=== PATIENT | female | born 1995 | race African-American/Black ===

== ENCOUNTER 2017-09-21 23:50 | Emergency (ER) | payer MEDICAID, OTHER ==
[~2017-09-21] VITALS: Ht 157.5 cm; Wt 64.0 kg
[2017-09-21 23:52] VITALS: BP 124/58; PULSE 90; RESP 18; TEMP 97.8; O2SAT 100
[2017-09-22] MEDS ORDERED: SODIUM CHLOR 0.9% 1000 ML INJ 1,000 ML IV SCH (00:03)
--- NOTE | 2017-09-22 00:06 | PD ---
HPI Chief Complaint: Abdominal Pain Time Seen by Provider: 00:00 Travel History International Travel<30 days: No Contact w/Intl Traveler<30days: No Traveled to known affect area: No History of Present Illness HPI 22-year-old female here for evaluation of nausea, vomiting, and . The patient reports that she had a positive home test. Her LMP was August 12. She reports that this is her first . For the last 2 days she has been having persistent vomiting which initially was bilious, now consists of whatever she tries to eat or drink. She also reports some loose bowel movements as well as abdominal cramping which is mid/diffuse, moderate. No vaginal bleeding or discharge. No fevers or chills. No urinary symptoms. No history of abdominal surgeries. [facility] Past Medical History Medical History: Denies Significant Hx Developmental Delay: No Diminished Hearing: No Immunizations Current: Yes ?: LMP: 08/12/17 Past Surgical History Surgical History: No Previous Surgery Social History Alcohol Use: No Tobacco Use: No Substance Use: No Allergies-Medications (Allergen,Severity, Reaction): Coded Allergies: No Known Allergies (Verified , 04/25/12) Reported Meds & Prescriptions Reported Meds & Active Scripts Active No Active Prescriptions or Reported Medications Review of Systems Except as stated in HPI: all other systems reviewed are Neg Physical Exam Narrative GENERAL: Well-developed, well-nourished, comfortable, no apparent distress. SKIN: Focused skin assessment warm/dry. HEAD: Atraumatic. Normocephalic. EYES: Pupils equal and round. No scleral icterus. No injection or drainage. ENT: No nasal bleeding or discharge. Mucous membranes pink and moist. NECK: Trachea midline. No JVD. CARDIOVASCULAR: Regular rate and rhythm. No murmur appreciated. RESPIRATORY: No accessory muscle use. Clear to auscultation. Breath sounds equal bilaterally. GASTROINTESTINAL: Abdomen soft, non-tender, nondistended. Normal bowel sounds. MUSCULOSKELETAL: No obvious deformities. No clubbing. No cyanosis. No edema. NEUROLOGICAL: Awake and alert. No obvious cranial nerve deficits. Motor grossly within normal limits. Normal speech. PSYCHIATRIC: Appropriate mood and affect; insight and judgment normal. Data Data Last Documented VS Vital Signs Date Time Temp Pulse Resp B/P (MAP) Pulse Ox O2 Delivery O2 Flow Rate FiO2 09/21/17 23:52 97.8 90 18 124/58 (80) 100 Room Air Orders Orders Beta Hcg (Quant/Titer) (09/22/17 00:03) Complete Blood Count With Diff (09/22/17 00:03) Comprehensive Metabolic Panel (09/22/17 00:03) Urinalysis - C+S If Indicated (09/22/17 00:03) Iv Access Insert/Monitor (09/22/17 00:03) Ecg Monitoring (09/22/17 00:03) Oximetry (09/22/17 00:03) Ondansetron Inj (Zofran Inj) (09/22/17 00:15) Sodium Chlor 0.9% 1000 Ml Inj (Ns 1000 M (09/22/17 00:03) Sodium Chloride 0.9% Flush (Ns Flush) (09/22/17 00:15) Ed Urine Pregnancytest Poc (09/22/17 00:03) Us Pelvis (Ques Preg/Ectopic) (09/22/17 ) Labs Laboratory Tests Test 09/22/17 00:15 09/22/17 02:10 White Blood Count 10.8 TH/MM3 Red Blood Count 4.54 MIL/MM3 Hemoglobin 13.2 GM/DL Hematocrit 38.3 % Mean Corpuscular Volume 84.4 FL Mean Corpuscular Hemoglobin 29.0 PG Mean Corpuscular Hemoglobin Concent 34.4 % Red Cell Distribution Width 12.8 % Platelet Count 252 TH/MM3 Mean Platelet Volume 8.9 FL Neutrophils (%) (Auto) 77.3 % Lymphocytes (%) (Auto) 13.5 % Monocytes (%) (Auto) 8.4 % Eosinophils (%) (Auto) 0.5 % Basophils (%) (Auto) 0.3 % Neutrophils # (Auto) 8.3 TH/MM3 Lymphocytes # (Auto) 1.5 TH/MM3 Monocytes # (Auto) 0.9 TH/MM3 Eosinophils # (Auto) 0.1 TH/MM3 Basophils # (Auto) 0.0 TH/MM3 CBC Comment DIFF FINAL Differential Comment Blood Urea Nitrogen 6 MG/DL Creatinine 0.65 MG/DL Random Glucose 80 MG/DL Total Protein 7.9 GM/DL Albumin 3.9 GM/DL Calcium Level 9.2 MG/DL Alkaline Phosphatase 85 U/L Aspartate Amino Transf (AST/SGOT) 17 U/L Alanine Aminotransferase (ALT/SGPT) 19 U/L Total Bilirubin 0.4 MG/DL Sodium Level 136 MEQ/L Potassium Level 3.7 MEQ/L Chloride Level 103 MEQ/L Carbon Dioxide Level 24.2 MEQ/L Anion Gap 9 MEQ/L Estimat Glomerular Filtration Rate 141 ML/MIN Human Chorionic Gonadotropin, Quant 99582 MIU/ML Urine Color YELLOW Urine Turbidity HAZY Urine pH 6.0 Urine Specific [place] 1.024 Urine Protein TRACE mg/dL Urine Glucose (UA) NEG mg/dL Urine Ketones 150 mg/dL Urine Occult Blood NEG Urine Nitrite NEG Urine Bilirubin NEG Urine Urobilinogen LESS THAN 2.0 MG/DL Urine Leukocyte Esterase SMALL Urine RBC 1 /hpf Urine WBC 2 /hpf Urine Squamous Epithelial Cells 8 /hpf Urine Bacteria OCC /hpf Urine Hyaline Casts 1 /lpf Urine Mucus MANY /lpf Microscopic Urinalysis Comment CULT NOT INDICATED MDM Medical Decision Making Medical Screen Exam Complete: Yes Emergency Medical Condition: Yes Differential Diagnosis Hyperemesis gravidarum, , ectopic , metabolic abnormality, UTI , acute intra-abdominal/surgical process unlikely Narrative Course Initial vital signs show heart rate 90, blood pressure 124/58, pulse ox 100% on room air, oral temp of 97.8F. CBC: WBC 10.8, hemoglobin 13.2, hematocrit 38.3, platelets 252, neutrophils 77.3 %. CMP is unremarkable. Beta hCG is 79,759. UA: Shows occasional bacteria Pelvic ultrasound: CONCLUSION: 1. There is a single intrauterine gestation with estimated age of 7 weeks and one day. Normal heart rate is documented. 2. There is a crescentic area of hypoechogenicity adjacent to the gestational sac which could represent a small subchorionic hemorrhage. Patient was made aware of all findings per she was given a dose of Zofran and is feeling much better. There are no peritoneal signs on exam. Pelvic rest endorsed. She is stable for discharge home with follow-up with an CERTIFIED FLEX ENDOSCOPE REPROCESSOR physician this week. I will start her on Macrobid for her bacteriuria during . She was informed on when to return to the emergency department. She verbalizes understanding and agreement with plan. Diagnosis Primary Impression: Qualified Codes: Z3A.01 - Less than 8 weeks gestation of Additional Impressions: Nausea and vomiting during Bacteriuria during Referrals: [facility] 3 days Additional Instructions: Follow-up with an CERTIFIED FLEX ENDOSCOPE REPROCESSOR physician this week. Return to the emergency department for worsening symptoms or any other concerns. Scripts Nitrofurantoin Monohydrate Macrocrystals (Macrobid) 100 Mg Cap 100 MG PO BID for Infection for 7 Days, #14 CAP 0 Refills Prov: Milton Elizabeth MD 09/22/17 Disposition: 01 DISCHARGE HOME Condition: Stable Milton Elizabeth MD Sep 22, 2017 00:06
[2017-09-22] MEDS ORDERED: ONDANSETRON HCL 4 MG/2 ML VIAL IVP ONE (00:15)
[2017-09-22] MEDS ORDERED: SODIUM CHLORIDE 0.9% FLUSH 10 ML FLUSH IV FLUSH PRN (00:15)
[2017-09-22 00:42] LABS: AUTOMATED NEUTROPHIL # 8.3 TH/MM3 (1.8-7.7); BASOPHIL % 0.3 % (0.0-2.0); EOSINOPHIL # 0.1 TH/MM3 (0-0.4); EOSINOPHIL % 0.5 % (0.0-4.0); HEMATOCRIT 38.3 % (35.0-46.0); HEMO FLAGS DIFF FINAL; LYMPH % 13.5 % (9.0-44.0); LYMPHOCYTE # 1.5 TH/MM3 (1.0-4.8); MEAN CELL VOLUME 84.4 FL (80.0-100.0); MEAN CORPUSCULAR HGB CONC 34.4 % (32.0-36.0); MONO % 8.4 % (0.0-8.0); NEUT % 77.3 % (16.0-70.0); PLATELET COUNT 252 TH/MM3 (150-450); RED BLOOD COUNT 4.54 MIL/MM3 (4.00-5.30); RED CELL DISTRIBUTION WIDTH 12.8 % (11.6-17.2); WHITE BLOOD COUNT 10.8 TH/MM3 (4.0-11.0)
[2017-09-22 01:13] LABS: ALT (GPT) 19 U/L (9-42); ANION GAP 9 MEQ/L (5-15); AST (GOT) 17 U/L (16-38); BICARBONATE 24.2 MEQ/L (21.0-32.0); BLOOD UREA NITROGEN 6 MG/DL (7-18); CHLORIDE 103 MEQ/L (98-107); GLOMERULAR FILTRATION RATE 141 ML/MIN (>89); POTASSIUM 3.7 MEQ/L (3.5-5.1); SODIUM (NA) 136 MEQ/L (136-145)
[2017-09-22 01:23] LABS: ALKALINE PHOSPHATASE 85 U/L (45-117); BETA HCG QUANT 79759 MIU/ML (0-5); TOTAL BILIRUBIN ADULT 0.4 MG/DL (0.2-1.0)
--- NOTE | 2017-09-22 02:26 | RADRPT ---
EXAM DATE/TIME: 09/22/2017 01:49 [place] COMPARISON: No previous studies available for comparison. INDICATIONS : Pelvic pain. LAB(S): Beta-hC,759 MEDICAL HISTORY : . SURGICAL HISTORY : None. ENCOUNTER: Initial ACUITY: 2 days PAIN SCORE: 5/10 LOCATION: Bilateral pelvis MEASUREMENTS: UTERUS: 8.6 x 6.8 x 5.2 cm ENDOMETRIAL STRIPE: 18 mm RIGHT OVARY: 1.6 x 1.8 x 1.2 cm LEFT OVARY: 2.1 x 1.9 x 1.4 cm FREE FLUID: No CROWN RUMP LENGTH: 1.0 cm = 7 WKS 1 DAYS FHR: 127 BPM FINDINGS: UTERUS: The myometrium has homogeneous echotexture without mass. There is a single intrauterine gestational sac measuring 4.0 x 2.7 x 1.7 cm. A yolk sac is present as well as an embryo with crown-rump length m easurement of 1.02 cm. There is a crescentic area of hypoechogenicity adjacent to the gestational sac . RIGHT OVARY: Ovary contains no mass or significant cystic lesion. LEFT OVARY: Ovary contains no mass or significant cystic lesion. MISCELLANEOUS: No free fluid. CONCLUSION: 1. There is a single intrauterine gestation with estimated age of 7 weeks and one day. Normal h eart rate is documented. 2. There is a crescentic area of hypoechogenicity adjacent to the gestational sac which could represe nt a small subchorionic hemorrhage. Mango Miles MD on September 22, 2017 at 2:23 Board Certified Radiologist. This report was verified electronically.
[2017-09-22 02:33] LABS: BACTERIA, URINE OCC /hpf; BLOOD, URINE NEG (NEG); COMMENT (UR) CULT NOT INDICATED; CULTURE IF INDICATED CULT NOT INDICATED; GLUCOSE,URINE NEG (NEG); HYALINE CAST, URINE 1 /lpf (RARE); KETONE, URINE 150 mg/dL (NEG); MUCUS URINE MANY /lpf (OCC); NITRITE,URINE NEG (NEG); SQUAMOUS EPITHELIAL CELL URINE 8 /hpf (0-5); URINE COLOR YELLOW (YELLW/STRAW)
[2017-09-22] MEDS ORDERED: MACR100C2 PO (03:06)
[2017-09-22] MEDS ORDERED: NITROFURANTOIN MONOHYD MACROCR 100 MG CAP PO ONE (03:15)
== END 2017-09-22 03:33 | disposition home or self-care (01) ==
LOC: NEPE 23:50
DX: O21.9 Vomiting of pregnancy, unspecified (principal); O26.891 Other specified pregnancy related conditions, first trimester; R82.71 Bacteriuria; R19.7 Diarrhea, unspecified; R10.84 Generalized abdominal pain; Z3A.01 Less than 8 weeks gestation of pregnancy
CPT/HCPCS: 76700; 80053; 81001; 84702; 84703; 85025; 96361; 96374; 99285; J2405; J7030